=== PATIENT | female | born 1955 | race Caucasian/White ===

== ENCOUNTER → 2017-10-07 | Day surgery (SDC) | payer BC ==
[~2017-10-07] MED LIST: BUPIVACAINE HCL 0.5% INJ 30 ML VIAL INJ ONE; CEFAZOLIN SOD 1 GM/NS 50ML 50 ML IV ONE; CYMBALTA60 MG PO; DEXAMETHASONE SOD PHOS INJ 4 MG/ML VIAL ONE; FENTANYL CITRATE/PF 100MCG/2 ML INJ ONE; LIDOCAINE HCL 2% LOCAL INJ 5 ML SDV VIAL INJ ONE; LOPREEZA PO; MIDAZOLAM HCL 2 MG/2 ML VIAL ONE; ONDANSETRON HCL INJ 2 MG/ML VIAL ONE; PROPOFOL IV EMULSION 10 MG/ML 20 ML VIAL ONE; SEVOFLURANE INHAL SOLN 250 ML PEN BTL ONE
--- NOTE | 2017-10-07 09:08 | Operative Report ---
DATE OF PROCEDURE: PREOPERATIVE DIAGNOSIS: Right foot hallux valgus. POSTOPERATIVE DIAGNOSIS: Right foot hallux valgus. PLANNED PROCEDURE: Right foot Nitin bunionectomy with first metatarsal osteotomy and internal fixation. SURGEON: Dr. Juan Jose DPM COURT ADMINISTRATOR: Jw Barber DPM ANESTHESIA: General with a postoperative block consisting of 15 mL of 0.5% Marcaine plain mixed with 1 mL of dexamethasone phosphate. HEMOSTASIS: Pneumatic thigh tourniquet set at 350 mmHg for a total time of approximately 25 minutes. MATERIALS: 2-0 Vicryl, 3-0 Vicryl, 4-0 Prolene. ESTIMATED BLOOD LOSS: Less than 10 mL. PATHOLOGY: None. PROCEDURE NOTE: The patient was seen in the preoperative waiting room where the correct procedure and site were identified. The patient was brought into the operating room and placed on the operating table in the supine position. General anesthesia was initiated at this time. A well-padded pneumatic tourniquet was placed about the patient's right thigh. The right foot, ankle, and leg were then scrubbed, prepped and draped in the usual aseptic manner. The right foot, ankle, and leg were exsanguinated with an Esmarch bandage, and the pneumatic thigh tourniquet was inflated to 350 mmHg for a total time of approximately 25 minutes. Attention was directed to the dorsomedial aspect of the patient's right foot where a 5-cm curvilinear incision was made directly over the first metatarsophalangeal joint. The incision was carried through the subcutaneous tissue, them from deeper underlying structures. All vital neurovascular structures were identified, retracted medially and laterally, and all bleeders were cauterized or ligated as deemed necessary. The incision was carried through the subcutaneous tissue them from deeper underlying structures. All vital neurovascular structures were identified, retracted medially and laterally, and all bleeders were cauterized or ligated as deemed necessary. At this time, the incision was carried through the first interspace where through the same incision, a full lateral release was performed consisting of the deep transverse metatarsal ligament, lateral collateral ligament as well as the fibular sesamoid ligament. The hallux was then put through range of motion and found to be functioning in more proper anatomic alignment. Next, attention was directed back to the first metatarsal where an inverted-L capsulotomy was performed and deep periosteal tissue was reflected medially to allow for good visualization of the first metatarsal head. Utilizing a sagittal saw, the medial eminence was resected and passed off to the back table. Next, utilizing the sagittal saw, a medial to lateral chevron osteotomy was performed with a dorsal limb longer to allow for proper fixation. The capital fragment was transposed laterally approximately 3 to 5 mm and impacted onto the shaft of the metatarsal. This was temporarily fixated with a 0.45 K-wire, and utilizing techniques of AO fixation, two 2.0 mm x 14 mm cortical bone screws were placed, the fixation site is stable. The wound was then flushed with copious amounts of sterile saline. Capsule and deep tissue reapproximated with 2-0 Vicryl, subcutaneous tissue with 3-0 Vicryl, and the skin was closed utilizing a running interlocking stitch with 4-0 Prolene. The incision site was then dressed with Adaptic, 4 x 4's, Kerlix, Unna' boot, Chris wrap, and a postop shoe. The patient tolerated the procedure and anesthesia well. The patient was transferred to postoperative recovery unit with vital signs stable and vascular status intact. Patient was monitored there for a short period of time before being sent home with the following written and oral instructions: 1. Keep the dressing clean, dry, and intact. 2. The patient is to remain partial weightbearing in a postop shoe, to avoid any excessive ambulation until being seen in the office. 3. The patient was given the office number and instructed to contact us if any problems should arise. Job#: [id number]
== END | disposition home or self-care (01) ==
LOC: OR 06:11
PROVIDERS: ATTEND Podiatrist Foot & Ankle Surgery
DX: M20.11 Hallux valgus (acquired), right foot (principal); J45.909 Unspecified asthma, uncomplicated; F41.9 Anxiety disorder, unspecified; Z01.810 Encounter for preprocedural cardiovascular examination
CPT/HCPCS: 28296; 93005; C1713; J1100; J2001; J2250; J2405